=== PATIENT | male | born 1950 | race Caucasian/White ===

== ENCOUNTER 2016-04-24 12:32 | Emergency (ER) | payer MEDICARE, OTHER ==
[~2016-04-24] VITALS: Ht 180.3 cm; Wt 97.2 kg
[~2016-04-24 12:32] MED LIST: ASPEC325 PO; GLIP10TA10 PO; HYDR-5688 PO; INDO-22 PO; INSDGI SC; LISI-461 PO; LSN/10125 PO; METO1TAB31 PO
[2016-04-24 12:45] VITALS: TEMP 36.8; Ht 180.3 cm; Wt 97.2 kg
[2016-04-24] MEDS ORDERED: SODIUM CHLORIDE 0.9% 1000ML 1,000 ML IV STA ×2 (13:50→14:36)
--- NOTE | 2016-04-24 14:00 | EMERGENCY ROOM VISIT NOTE ---
History Report prepared by Tara: Hadley Willis Under the Supervision of: Dr. Jason Garcia M.D. First contact with patient: 12:51 Chief Complaint: MENTAL HEALTH EVALUATION Stated Complaint: BROKEN VALVE, URINE History of Present Illness The patient is a 66 year old male who presents to the Emergency Room for an acute mental health evaluation. [facility] went [facility] up [facility] today. He states that they found some abnormalities and sent him to the ED to be checked out. As per the psychiatric transplant case manager, the patient actually came to the ED because while at the [facility] he stated that he received a letter in the mail telling him that a metal tube is inside of his penis. He has since stated that the metal has come out of his penis. The patient has been to the ED multiple times for confusion. The patient had a TIA last year. The patient is not suicidal or homicidal. He has a history of diabetes. Source of History: patient, other (case management) Onset: earlier today Position: other (psyche) Quality: other (mental health evaluation) Timing: other (acute) Note: Negative for SI or HI. Review of Systems See HPI for pertinent positives & negatives. A total of 10 systems reviewed and were otherwise negative. Past Medical & Surgical Medical Problems: (1) Aortic stenosis (2) DM type 2 (diabetes mellitus, type 2) (3) Hyperlipidemia (4) Hypertension (5) Obesity (BMI 30.0-34.9) (6) Osteoarthritis Surgical Problems: (1) History of arthroplasty of right knee (2) Hx of arthroscopic knee surgery (3) S/P rotator cuff repair Family History Cancer FH: HTN (hypertension) FH: diabetes mellitus FH: heart disease Social History Smoking Status: Never Smoker Alcohol Use: occasionally Drug Use: none Marital Status: Housing Status: lives alone Occupation Status: disabled Current/Historical Medications Scheduled Aspirin (Aspirin), 325 MG PO BID Glipizide (Glipizide), 10 MG PO BID Hctz/Lisinopril (Lisinopril/Hctz 10/12.5 Mg), 1 TAB PO QAM Insulin Glargine (Lantus), 45 UNITS SC QPM Lisinopril (Lisinopril), 10 MG PO QPM Metoprolol Succinate (Toprol Xl), 25 MG PO DAILY Scheduled PRN Hydrocodone/Acetaminophen 5MG/325MG ([place] 5MG/325MG), 1-2 TAB PO Q4H PRN for Pain Miscellaneous Medications Indomethacin (Indocin), 25 MG PO Allergies Coded Allergies: Flu Virus Vaccine (Verified Allergy, Unknown, GOT SICK FOR 4 MONTHS-2011, 04/24/16) Codeine (Verified Adverse Reaction, Intermediate, CONFUSION, 04/24/16) Oxycodone (Verified Adverse Reaction, Intermediate, confusion, 04/24/16) Physical Exam Vital Signs Date Time Temp Pulse Resp B/P Pulse Ox O2 Delivery O2 Flow Rate FiO2 04/24/16 15:50 83 20 143/81 98 04/24/16 15:11 80 18 143/82 100 Room Air 04/24/16 14:08 87 16 136/78 95 Room Air 04/24/16 14:08 97 Room Air 04/24/16 14:03 92 04/24/16 12:45 36.8 95 18 139/81 94 Room Air Physical Exam GENERAL: Patient is a healthy-appearing well-nourished HEAD: Normocephalic atraumatic EYES: Ocular movements intact pupils equal and react to light OROPHARYNX mucous membranes are moist no exudates present no erythema or edema present NECK: Supple no nuchal rigidity CHEST: Good equal expansion LUNGS: Clear and equal to auscultation CARDIAC: Normal S1 and S2 ABDOMEN: Soft nontender no guarding BACK: No CVA tenderness EXTREMITIES: No pain upon palpation normal muscle strength in all groups no clubbing cyanosis or edema NEURO: Patient is following commands is answering questions appropriately. Alert and oriented x3 Cranial Nerves 2-12 grossly intact Medical Decision & Procedures ER Provider Diagnostic Interpretation: X-ray results as stated below per my interpretation and radiologist interpretation. Other radiology results as stated below per my review and radiologist interpretation: CHEST ONE VIEW PORTABLE CLINICAL HISTORY: Altered mental status. COMPARISON STUDY: Chest radiograph June 09, 2014. FINDINGS: There is no pneumothorax or pleural effusion. Pulmonary vascularity is normal. Cardiomediastinal silhouette is stable. There is evidence for suspected previous bilateral distal clavicular resections. IMPRESSION: No acute cardiopulmonary findings. Electronically signed by: Kale Soto M.D. 04/24/2016 2:33 PM Dictated Date/Time: 04/24/2016 2:[address] OF THE HEAD WITHOUT CONTRAST CLINICAL HISTORY: Altered mental status. COMPARISON STUDY: Head CT September 02, 2015 and MRI of the brain September 08, 2015. CT DOSE: 729.78 mGycm TECHNIQUE: Helical axial images of the head were obtained without IV contrast. Automated exposure control was utilized for the study. FINDINGS: No acute intracranial hemorrhage, midline shift or mass effect is present. Ventricular system is stable. Basilar cisterns are patent. There are no extra axial collections. 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 There are no findings to suggest acute dural sinus thrombosis or acute territorial infarct. No significant calvarial abnormalities are present. Visualized portions of the sinuses and mastoid air cells are clear. IMPRESSION: No acute intracranial findings. Electronically signed by: Kale Soto M.D. 04/24/2016 2:51 PM Dictated Date/Time: 04/24/2016 2:47 PM Laboratory Results 04/24/16 13:55 Red Blood Count 4.01, Mean Corpuscular Volume 88.0, Mean Corpuscular Hemoglobin 31.7, Mean Corpuscular Hemoglobin Concent 36.0, Mean Platelet Volume 11.7, Neutrophils (%) (Auto) 62.0, Lymphocytes (%) (Auto) 23.1, Monocytes (%) (Auto) 12.5, Eosinophils (%) (Auto) 1.4, Basophils (%) (Auto) 0.8, Neutrophils # (Auto ) 3.16, Lymphocytes # (Auto) 1.18, Monocytes # (Auto) 0.64, Eosinophils # (Auto ) 0.07, Basophils # (Auto) 0.04 04/24/16 13:55 Test 04/24/16 13:55 04/24/16 14:03 04/24/16 14:35 White Blood Count 5.10 K/uL (4.8-10.8) Red Blood Count 4.01 M/uL (4.7-6.1) Hemoglobin 12.7 g/dL (14.0-18.0) Hematocrit 35.3 % (42-52) Mean Corpuscular Volume 88.0 fL (80-100) Mean Corpuscular Hemoglobin 31.7 pg (25-34) Mean Corpuscular Hemoglobin Concent 36.0 g/dl (32-36) Platelet Count 103 K/uL (130-400) Mean Platelet Volume 11.7 fL (7.4-10.4) Neutrophils (%) (Auto) 62.0 % Lymphocytes (%) (Auto) 23.1 % Monocytes (%) (Auto) 12.5 % Eosinophils (%) (Auto) 1.4 % Basophils (%) (Auto) 0.8 % Neutrophils # (Auto) 3.16 K/uL (1.4-6.5) Lymphocytes # (Auto) 1.18 K/uL (1.2-3.4) Monocytes # (Auto) 0.64 K/uL (0.11-0.59) Eosinophils # (Auto) 0.07 K/uL (0-0.5) Basophils # (Auto) 0.04 K/uL (0-0.2) RDW Standard Deviation 41.2 fL (36.4-46.3) RDW Coefficient of Variation 12.8 % (11.5-14.5) Immature Granulocyte % (Auto) 0.2 % Immature Granulocyte # (Auto) 0.01 K/uL (0.00-0.02) Anion Gap 12.0 mmol/L (3-11) Est Creatinine Clear Calc Drug Dose 64.6 ml/min Estimated GFR () 65.0 Estimated GFR (Non- 56.1 BUN/Creatinine Ratio 20.2 (10-20) Calcium Level 9.4 mg/dl (8.5-10.1) Total Bilirubin 0.7 mg/dl (0.2-1) Direct Bilirubin 0.2 mg/dl (0-0.2) Aspartate Amino Transf (AST/SGOT) 26 U/L (15-37) Alanine Aminotransferase (ALT/SGPT) 39 U/L (12-78) Alkaline Phosphatase 174 U/L (45-117) Total Creatine Kinase 97 U/L (39-308) Creatine Kinase MB 2.1 ng/ml (0.5-3.6) Creatine Kinase MB Ratio 2.2 (0-3.0) Troponin I < 0.015 ng/ml (0-0.045) Total Protein 7.5 gm/dl (6.4-8.2) Albumin 3.9 gm/dl (3.4-5.0) Beta-Hydroxybutyric Acid 3.25 mg/dL (0.2-2.81) Thyroid Stimulating Hormone (TSH) 2.060 uIu/ml (0.300-4.500) Ethyl Alcohol mg/dL < 3.0 mg/dl (0-3) Bedside Glucose > 600 mg/dl (70-99) Urine Color YELLOW Urine Appearance CLEAR (CLEAR) Urine pH 5.5 (4.5-7.5) Urine Specific Stringer 1.032 (1.000-1.030) Urine Protein NEG (NEG) Urine Glucose (UA) 3+ (NEG) Urine Ketones NEG (NEG) Urine Occult Blood NEG (NEG) Urine Nitrite NEG (NEG) Urine Bilirubin NEG (NEG) Urine Urobilinogen NEG (NEG) Urine Leukocyte Esterase NEG (NEG) Urine Opiates Screen NEG (NEG) Urine Methadone, Qualitative NEG (NEG) Urine Barbiturates NEG (NEG) Urine Phencyclidine (PCP) Level NEG (NEG) Ur Amphetamine/Methamphetamine NEG (NEG) MDMA (Ecstasy) Screen NEG (NEG) Urine Benzodiazepines Screen NEG (NEG) Urine Cocaine Metabolite NEG (NEG) Urine Marijuana (THC) NEG (NEG) Labs reviewed by ED physician. Medications Administered Medications (Trade) Dose Ordered Sig/Xochitl Route Start Time Stop Time Status Last Admin Dose Admin Sodium Chloride 1,000 ml @ 999 mls/hr Q1H1M STAT IV 04/24/16 13:50 04/24/16 14:50 DC 04/24/16 14:07 999 MLS/HR Sodium Chloride (Nss 1000ml) 1,000 ml @ 999 mls/hr Q1H1M STAT IV 04/24/16 14:36 04/24/16 15:36 DC 04/24/16 15:27 999 MLS/HR Insulin Human Regular (novoLIN-R U-100 PER UNIT) 10 units NOW STAT IV 04/24/16 15:01 04/24/16 15:03 DC 04/24/16 15:01 10 UNITS ECG Indication: altered mental status Rate (beats per minute): 94 Rhythm: normal sinus Findings: no acute ischemic change, no ectopy, other (normal EKG) ED Course 1300: Past medical records reviewed. The patient was evaluated in room A8. A complete history and physical examination was performed. 1350: NSS 1000 ml @ 999 mls/hr. 1436: NSS 1000 ml @ 999 mls/hr. 1437: Insulin Human Regular 1 ea. 1445: Insulin Protocol Moderate Stress Level 1 ea, Insulin Protocol Hhs Goal Range 1 ea. 1501: Insulin Human Regular 10 units IV. 1530: The patient has opted to sign out AMA. I discussed the instructions with him. He verbalized understanding and agreement. Medical Decision Etiologies such as mood disorder, infection, hypoglycemia, electrolyte abnormalities, cardiac sources, intracerebral event, toxicologic, neurologic, as well as others were entertained. This is a 66-year-old male who [facility]. Upon arrival to emergency department the patient was found to have a blood sugar while above 600. When questioned about this the patient notes that he has been drinking a large amount of soda. The patient was also sent for CAT scan of the head as well as a chest x-ray. Repeat examination revealed much improvement in the patient's symptoms. After some time the patient's confusion did pass and I feel that this is more related to his hyperglycemia than anything else. He has no evidence of DKA on laboratory work. In addition the patient was given 2 L of fluid here in emergency department and started on insulin. I strongly recommended to the patient that he be admitted to the hospital however he is adamantly refusing. The patient has demonstrated no significant defect in the decision-making capacity to make choices. The encounter had a good level of communication with language the patient can easily understand. I feel trust was present and conveyed that our action/intentions were the best interest of the patient. The patient was given all relevant information and reiterated the explained risks and benefits. The patient explained the reasoning for refusing treatment clearly. The patient possesses and expresses a set of values and goals, the ability to communicate and understand, and an ability to reason and deliberate. Despite acting emphatically, attentively and with the utmost patient's the patient declined further treatment. I offered options, negotiated, and explored every reasonable choice. I must respect the patient's autonomy and that they feel that their choices are best for them despite the associated risks of leaving without completing the evaluation. The patient was informed about the findings as listed above. All questions were answered and he was pleased with the treatment. Return instructions were outlined and the patient was discharged in stable condition. Impression Primary Impression: Hyperglycemia Critical Care I have personally spent greater than 30 minutes of critical care time in the direct management of this patient. This includes bedside care, interpretation of diagnostic studies, and testing, discussion with consultants, patient, and family members, and other required patient management activities. This 30 minutes is in excess of all separately billable procedures. Scribe Attestation The scribe's documentation has been prepared under my direction and personally reviewed by me in its entirety. I confirm that the note above accurately reflects all work, treatment, procedures, and medical decision making performed by me. Departure Information Dispostion Home / Self-Care Referrals Elsie Toledo C.R.N.P. (PCP) Forms HOME CARE DOCUMENTATION FORM, IMPORTANT VISIT INFORMATION, School Instructions, Work Instructions Patient Instructions Hyperglycemia, [facility] Additional Instructions STOP drinking soda You have been examined and treated today on an emergency basis only. This is not a substitute for, or an effort to provide, complete comprehensive medical care. It is impossible to recognize and treat all injuries or illnesses in a single emergency department visit. It is therefore important that you follow up closely with Dr Toledo. Call as soon as possible for an appointment. Thank you for your time and consideration. I look forward to speaking with you again soon. Please don't hesitate to call us if you have any questions.
[2016-04-24 14:08] VITALS: O2SAT 97
[2016-04-24 14:08] LABS: BASO % 0.8 %; BASO ABS # 0.04 K/uL (0-0.2); COMPLETE YES; EOS % 1.4 %; HEMATOCRIT 35.3 % (42-52); IG% 0.2 %; LYMPH % 23.1 %; LYMPH ABS # 1.18 K/uL (1.2-3.4); MEAN CORPUSCULAR HEMOGLOBIN 31.7 pg (25-34); MEAN PLATELET VOLUME 11.7 fL (7.4-10.4); MONO % 12.5 %; PLATELET COUNT 103 K/uL (130-400); RED BLOOD COUNT 4.01 M/uL (4.7-6.1)
[2016-04-24 14:35] LABS: ALKALINE PHOSPHATASE 174 U/L (45-117); ALT/SGPT 39 U/L (12-78); AST/SGOT 26 U/L (15-37); BLOOD UREA NITROGEN 26 mg/dl (7-18); BUN/CREATININE RATIO 20.2 (10-20); CALCIUM 9.4 mg/dl (8.5-10.1); CARBON DIOXIDE 23 mmol/L (21-32); CHLORIDE 93 mmol/L (98-107); CKMB/CK RATIO 2.2 (0-3.0); GLUCOSE 665 mg/dl (70-99); POTASSIUM 4.9 mmol/L (3.5-5.1); SODIUM 128 mmol/L (136-145)
--- NOTE | 2016-04-24 14:35 | DIAGNOSTIC IMAGING REPORT ---
CHEST ONE VIEW PORTABLE CLINICAL HISTORY: Altered mental status. COMPARISON STUDY: Chest radiograph June 09, 2014. FINDINGS: There is no pneumothorax or pleural effusion. Pulmonary vascularity is normal. Cardiomediastinal silhouette is stable. There is evidence for suspected previous bilateral distal clavicular resections. IMPRESSION: No acute cardiopulmonary findings. Electronically signed by: Kale Soto M.D. 04/24/2016 2:33 PM Dictated Date/Time: 04/24/2016 2:33 PM
[2016-04-24] MEDS ORDERED: INSULIN IV INFUSION PROTOCOL STA (14:37)
[2016-04-24] MEDS ORDERED: HHS GOAL RANGE 250-350 mg/dl ONE (14:45)
[2016-04-24] MEDS ORDERED: MODERATE STRESS LEVEL ONE (14:45)
--- NOTE | 2016-04-24 14:53 | DIAGNOSTIC IMAGING REPORT ---
CT OF THE HEAD WITHOUT CONTRAST CLINICAL HISTORY: Altered mental status. COMPARISON STUDY: Head CT September 02, 2015 and MRI of the brain September 08, 2015. CT DOSE: 729.78 mGycm TECHNIQUE: Helical axial images of the head were obtained without IV contrast. Automated exposure control was utilized for the study. FINDINGS: No acute intracranial hemorrhage, midline shift or mass effect is present. Ventricular system is stable. Basilar cisterns are patent. There are no extra axial collections. 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 There are no findings to suggest acute dural sinus thrombosis or acute territorial infarct. No significant calvarial abnormalities are present. Visualized portions of the sinuses and mastoid air cells are clear. IMPRESSION: No acute intracranial findings. Electronically signed by: Kale Soto M.D. 04/24/2016 2:51 PM Dictated Date/Time: 04/24/2016 2:47 PM
[2016-04-24 14:59] LABS: BETA-HYDROXYBUTYRATE 3.25 mg/dL (0.2-2.81)
[2016-04-24] MEDS ORDERED: NovoLIN-R INSULIN PER UNIT CHARGE IV STA (15:01)
[2016-04-24] MEDS ORDERED: NovoLIN-R INSULIN PER UNIT CHARGE SC STA (15:02)
[2016-04-24 15:25] LABS: URINE APPEARANCE CLEAR (CLEAR); URINE BILIRUBIN NEG (NEG); URINE COLOR YELLOW; URINE NITRITE NEG (NEG); URINE PH 5.5 (4.5-7.5); URINE SPECIFIC GRAVITY 1.032 (1.000-1.030); UROBILINOGEN NEG (NEG)
[2016-04-24 15:26] LABS: MANUAL MICROSCOPIC REQUIRED? NO; REVIEW REQ? NO
[2016-04-24 15:50] VITALS: BP 143/81; PULSE 83; O2SAT 98
[2016-04-24 15:50] LABS: BENZODIAZEPINE, URINE NEG (NEG); COCAINE,URINE NEG (NEG); PHENCYCLIDINE, URINE NEG (NEG)
[2016-04-24] MEDS ORDERED: INSULIN ASPART 100 UNITS/ML 3 ML PEN SC SCH (19:00)
== END 2016-04-24 15:52 | disposition home or self-care (01) ==
LOC: C.EDB 12:33 → C.EDA 15:52
DX: E13.65 Other specified diabetes mellitus with hyperglycemia (principal); E78.5 Hyperlipidemia, unspecified; I10 Essential (primary) hypertension; Z79.899 Other long term (current) drug therapy

== ENCOUNTER → 2016-12-20 | Outpatient (CLI) | payer OTHER | END | disposition home or self-care (01) | LOC: C.RDSM 11:45 | PROVIDERS: ATTEND Physical Medicine & Rehabilitation Sports Medicine | DX: M25.561 Pain in right knee (principal); M25.562 Pain in left knee ==